=== PATIENT | male | born 2000 | race Caucasian/White ===

== ENCOUNTER 2019-12-23 13:14 | Emergency (ER) | payer MEDICAID ==
[~2019-12-23] VITALS: Ht 177.8 cm; Wt 70.0 kg
--- NOTE | 2019-12-23 13:30 | NUR ---
PT STATES HE CUT HIS HAND ON BLADE WHILE REMOVING WALLPAPER. PT RT HANDED. LAC TO DORSAL MIDDLE FINGER ACROSS 2ND JOINT. LAC TO DORSAL HAND PROIMAL TO RING FINGER. TD "ABOUT 6 YEARS AGO"
[2019-12-23] MEDS ORDERED: LIDOCAINE-MPF 2% ,5ML ONE (13:47)
--- NOTE | 2019-12-23 13:48 | NUR ---
LIDOCAINE GIVEN TO DR ELDRIDGE FOR ADMINISTRATION
[2019-12-23] MEDS ORDERED: LIDOCAINE 2%, 20ML SQ ONE (14:00)
--- NOTE | 2019-12-23 14:09 | NUR ---
DR ELDRIDGE BS FOR SUTURING
[2019-12-23] MEDS ORDERED: NEOSPORIN OINT. PKT 1 PACKET ONE (14:23)
--- NOTE | 2019-12-23 14:43 | NUR ---
AMBULATORY TO & FROM [facility] W/OUT INCIDENT; GAIT STEADY.
[2019-12-23 14:53] VITALS: BP 117/49
== END 2019-12-23 14:55 | disposition home or self-care (01) ==
LOC: ED 13:29
DX: S61.212A Laceration without foreign body of right middle finger without damage to nail, initial encounter (principal); S61.214A Laceration without foreign body of right ring finger without damage to nail, initial encounter; X58.XXXA Exposure to other specified factors, initial encounter; Y93.89 Activity, other specified; Y92.098 Other place in other non-institutional residence as the place of occurrence of the external cause; Y99.8 Other external cause status
CPT/HCPCS: 12041; 96372; 99285; J3490